=== PATIENT | male | born 1995 | race Two or more races ===

== ENCOUNTER 2018-05-07 21:58 | Emergency (ER) | payer OTHER ==
[~2018-05-07] VITALS: Ht 175.3 cm; Wt 127.0 kg
[2018-05-08] MEDS ORDERED: DOLOGEN CAPLET1 EACH PO (04:52)
== END 2018-05-08 05:06 | disposition home or self-care (01) ==
LOC: ER 21:58
DX: B34.9 Viral infection, unspecified (principal)